=== PATIENT | female | born 1990 | race Caucasian/White ===

== ENCOUNTER 2023-05-20 16:48 | Outpatient (REF) | payer BC, SELFPAY ==
--- NOTE | 2023-05-20 12:10 | PAPFT_PTH ---
PATIENT: Mariela Diaz LOC: [facility] U#:[id number] AGE/SX: 32/F ROOM: RE05/20/[address]: Myesha Olvera NP : 1990 BED: DIS: 05/20/2023 SPEC #: [id number] RECD: 05/21/23 13:01 STATUS: MARIO REIsaiah #: [id number] ANA: 05/20/23 12:[address]: Myesha Olvera DEPT: [facility] Cytology RECD BY: Uma Crouch Tissues: 1 - CX/ENDOCX FOR PAP SMEARS Procedures: PAP THIN PREP/[facility] Screening HPV DNA PROBE Comments: [id number]
== END 2023-05-20 16:49 | disposition home or self-care (01) ==
LOC: LBN 16:48
PROVIDERS: PCP Nurse Practitioner Family; Visit Provider Nurse Practitioner Family
DX: Z12.4 Encounter for screening for malignant neoplasm of cervix (principal); Z11.51 Encounter for screening for human papillomavirus (HPV)
CPT/HCPCS: 88142; 87624